=== PATIENT | male | born 1955 | race Caucasian/White ===

== ENCOUNTER 2018-09-03 11:39 | Inpatient (IN) | payer OTHER ==
[~2018-09-03] VITALS: Ht 182.9 cm; Wt 51.3 kg
--- NOTE | ~2018-09-03 | CON ---
[address] [address] CONSULTATION Name: CHARITO GONZALEZ Room: [address] IN M.R.#: [id number] Admission: 09/03/18 Attend Phys: Taylor Strauss MD Discharge: Date of : 53 Report #: [id number] THIS REPORT FOR: //name// CC: Taylor Mcintyre DATE OF SERVICE: 09/04/2018 NEUROLOGY CONSULTATION: HISTORY OF PRESENT ILLNESS: The gentleman is a 63-year-old male who has had difficulty with dizziness. This began around 2011. Eventually, it began to affect his gait and in approximately 2013 or so, he began walking with a cane. The patient's can now get him out of bed by using a gait belt, but the patient does not walk independently. At one point, he saw a physician and had an MRI of the head. Apparently, this was unremarkable. Today, an MRI of the head was attempted, but the patient cannot lie flat. He has significant forward flexion of the neck, so the MRI could not be done. When the patient went to see Dr. Mcintyre for a physical, he was referred to the Emergency Room. It has been quite some time since he has seen a physician. PAST MEDICAL HISTORY: Negative. PAST SURGICAL HISTORY: Negative. MEDICATIONS: The patient is now on Sinemet 10/100 one tablet 3 times a day. ALLERGIES: None. PHYSICAL EXAMINATION: VITAL SIGNS: Temperature 37.1, pulse rate 89, respiratory rate 17, blood pressure 125/76, bedside pulse oximetry 100% on room air. LABORATORY DATA: White blood cell count 3.7, hemoglobin 8.2, hematocrit 25.1, MCV 97, platelet count 172. Chemistry: Sodium 142, potassium 5.4, chloride 112, carbon dioxide 18, BUN 46, creatinine 3, GFR 21, calcium 8.9, phosphorus 4, magnesium 1.7. Liver functions unremarkable. B12 is 883. Folate 17.9. TSH 13.1. Free T4 is 1.05. NEUROLOGIC: Cranial nerves: The patient has no vertical gaze whatsoever. He has minimal horizontal gaze. Cranial nerves 2-12 are grossly intact. His told me that he is able to answer yes or no questions, but I could not understand any speech. Motor exam [place] [address] CONSULTATION Name: CHARITO GONZALEZ Room: [address]#: [id number] Admission: 09/03/18 Attend Phys: Taylor Strauss MD Discharge: Date of : 53 Report #: [id number] extremities. He has significant spasticity in the upper and lower extremities. He has significant axial spasticity as well. There is no evidence of cogwheel rigidity. His arms are flexed forward, but they can be straightened. The patient does not have contractures. Reflexes are symmetrical; however, the patient has a right extensor plantar response and a flexor and a left flexor extensor response. Coordination and gait were not tested. 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 This patient has absolutely no up or down gaze. He also has significant rigidity in the extremities and axial rigidity. Typically in progressive supranuclear palsy, the head is tilted backward. In this patient, his head is flexed forward, but he is very rigid axially. The patient is on Sinemet 10/100 one tablet 3 times a day. The fact is that there is no treatment for PSP. Medications are given for symptomatic improvement, but the fact is that Sinemet may be absolutely ineffective particularly since this is not Parkinson's disease. I am concerned about the patient's ability to swallow and apparently speech therapy is working with him and a video swallow is scheduled. I am also concerned about the remainder of the patient's lab work. He is anemic and has renal dysfunction with GFR of 21. His iron binding capacity is also low. Since the MRI could not be done, I am going to try a CT scan of the head just to look for something grossly abnormal. I thank you for your kind referral of the patient. By: 1430 0117Rebecca Rebolledo DO /nt
[2018-09-03 11:43] VITALS: BP 133/91
[2018-09-03] MEDS ORDERED: SINEMET 10-1001 EAC1 PO (11:47)
[2018-09-03 12:54] LABS: ABSOLUTE EOSINOPHILS 0.1 thou/uL (0.0-0.7); ABSOLUTE LYMPHOCYTES 0.8 thou/uL (0.8-5.3); ABSOLUTE NEUTROPHILS 2.5 thou/uL (1.6-8.1); BASOPHILS 0.8 %; EOSINOPHILS 3.9 %; HEMATOCRIT 29.9 % (42.0-52.0); HEMOGLOBIN 9.8 gm/dL (14.0-18.0); LYMPHOCYTES 21.7 %; MCH 32.3 pg (26.0-34.0); MCHC 32.8 g/dL (28.0-37.0); MCV 98.4 fL (80.0-100.0); MONOCYTES 0.9 %; NUCLEATED RBCS 0 /100WBC; PLATELET COUNT* 204 thou/uL (150-400); POLYS 72.7 %; RBC 3.04 mil/uL (4.50-6.00); RDW-CV 14.6 % (10.5-14.5); WBC 3.5 thou/uL (4.0-11.0)
[2018-09-03 12:58] LABS: CALCIUM 7.2 mg/dL (8.5-10.1); CREATININE 2.7 mg/dL (0.6-1.3); POTASSIUM 4.1 mmol/L (3.5-5.1)
[2018-09-03 13:07] LABS: ALBUMIN 2.5 g/dL (3.4-5.0); TOTAL BILIRUBIN 0.2 mg/dL (<0.1-1.0); TROPONIN-I LEVEL 0.13 ng/mL (<0.06)
--- NOTE | 2018-09-03 17:37 | EKG ---
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
[2018-09-03 18:31] LABS: POTASSIUM 5.1 mmol/L (3.5-5.1)
[2018-09-03 18:32] LABS: CALCIUM 8.7 mg/dL (8.5-10.1); CREATININE 3.1 mg/dL (0.6-1.3)
[2018-09-03 21:29] VITALS: BP 182/76
[2018-09-03 22:30] VITALS: BP 166/90
[2018-09-04 04:00] VITALS: BP 116/76
--- NOTE | 2018-09-04 05:02 | NUR ---
RECEIVED REPORT FROM SUPERVISOR ELEMENTARY EDUCATIONCORA OATES AT 1942. PT ARRIVED TO UNIT AT 2129 VIA CART. SPOUSE AT BEDSIDE. PT NONVERBAL. STAT NEPHROLOGY CONSULT PER DR. JIMENEZ AT 2155. SPOKE WITH DR. STAHL AND NEW ORDERS RECEIVED. IV FLUIDS INFUSING. NO APPARENT S/S OF PAIN THIS SHIFT. Q2H REPOSITIONING COMPLETED. FALL PRECAUTIONS IN PLACE. CALL LIGHT WITHIN REACH.
[2018-09-04 05:48] LABS: HEMATOCRIT 25.1 % (42.0-52.0); HEMOGLOBIN 8.2 gm/dL (14.0-18.0); MCH 31.7 pg (26.0-34.0); MCHC 32.7 g/dL (28.0-37.0); MPV 8.8 fl. (7.2-11.1); RBC 2.58 mil/uL (4.50-6.00); RDW-CV 14.2 % (10.5-14.5); WBC 3.7 thou/uL (4.0-11.0)
[2018-09-04 06:18] LABS: ALBUMIN 2.6 g/dL (3.4-5.0); CALCIUM 8.9 mg/dL (8.5-10.1); MAGNESIUM 1.7 mg/dL (1.8-2.4); POTASSIUM 5.4 mmol/L (3.5-5.1); TOTAL BILIRUBIN 0.2 mg/dL (<0.1-1.0); TOTAL PROTEIN 6.3 g/dL (6.4-8.2); TROPONIN-I LEVEL 0.14 ng/mL (<0.06)
[2018-09-04 07:30] VITALS: BP 109/72
[2018-09-04 12:00] VITALS: BP 126/80
--- NOTE | 2018-09-04 12:36 | 2DMMODE ---
[place] [address] 2 D/M-MODE ECHOCARDIOGRAM Name: CHARITO GONZALEZ Room: [address] IN [facility]#: [id number] Admission: 09/03/18 Attend Phys: Taylor Strauss, Discharge: Date of : 53 Date of Service: 09/04/18 1235 Report #: [id number] THIS REPORT FOR: //name// APPROVED REPORT Study performed: 09/04/2018 10:34:18 EXAM: Comprehensive 2D, Doppler, and color-flow Echocardiogram Patient Location: In-Patient Room #: [facility] Status: routine BSA: 1.88 HR: 94 bpm BP: 109/72 mmHg Rhythm: NSR Other Information Study Quality: Adequate Technically limited study due to poor window availability. Indications Elevated Troponin 2D Dimensions LVOT Diam: 20.00 (18-24mm) Aortic Valve AoV Peak Renzo.: 1.89 m/s AO Peak Gr.: 14.29 mmHg LVOT Max P.42 mmHg AO Mean Gr.: 8.09 mmHg LVOT Mean P.88 mmHg LVOT Max V: 0.92 m/s AO V2 VTI: 30.77 cm LVOT Mean V: 0.64 m/s JOSÉ LUIS (VTI): 1.82 cm2 LVOT V1 VTI: 17.79 cm Mitral Valve E/A Ratio: 0.75 MV Decel. Time: 171.97 ms MV E Max Renzo.: 0.51 m/s MV PHT: 49.87 ms MVA (PHT): 4.41 cm2 TDI E/Medial E': 4.25 Medial E' Renzo.: 0.12 m/[place] [address] 2 D/M-MODE ECHOCARDIOGRAM Name: CHARITO GONZALEZ Room: [address] IN ..#: [id number] Admission: 09/03/18 Attend Phys: Taylor Strauss, Discharge: Date of : 53 Date of Service: 09/04/18 1235 Report #: [id number] Left Ventricle The left ventricle is normal size. There appears to be hypokinesis involving the dital setum and anteroseptal apex. There is normal left ventricular wall thickness. Left ventricular systolic function is preserved. LVEF is 55-60%. Grade I - abnormal relaxation pattern. Right Ventricle The right ventricle is normal size. The right ventricular systolic function is normal. Atria The left atrium size is normal. The right atrium size is normal. Aortic Valve Mild aortic valve sclerosis. No aortic regurgitation is present. Mild aortic stenosis. Mitral Valve The mitral valve is normal in structure. Trace mitral regurgitation. No evidence of mitral valve stenosis. Tricuspid Valve The tricuspid valve is normal in structure. There is no tricuspid valve regurgitation noted. Pulmonic Valve Pulmonic valve is not well visualized. Great Vessels The aortic root is normal in size. IVC is not well visualized. Pericardium There is no pericardial effusion. <Conclusion> The left ventricle is normal size. There is normal left ventricular wall thickness. Left ventricular systolic function is preserved. LVEF is 55-60%. Grade I - abnormal relaxation pattern. There appears to be hypokinesis [place] [address] 2 D/M-MODE ECHOCARDIOGRAM Name: CHARITO GONZALEZ Room: [address] [facility] IN .R.#: [id number] Admission: 09/03/18 Attend Phys: Taylor Strauss, Discharge: Date of : 53 Date of Service: 09/04/18 1235 Report #: [id number] anteroseptal apex. Trace mitral regurgitation. <ELECTRONICALLY SIGNED> By: Jaleel Mijares MD, FACC 09/04/18 1235 34 123 Jaleel Mijares MD, FACC /INF
--- NOTE | 2018-09-04 12:48 | NUR ---
MET WI PT AND TO DISCUSS HOME SITUATION/DC PLANNING. PT DID NOT SPEAK BUT CAN NOD. 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 THEY HAVE CHILDREN THAT CAN ASSIST NEEDED. PER ROSITA/, PT HAS BEEN DETERIORATING FOR 6YRS, HAS NOT GONE TO DR REGULARLY. HE WAS A [employer]. STATES THAT HE WILL GET MEDICARE IN 3 MONTHS AND UNSURE HOW SHE'LL MANAGE THIS BILL. INFORMED HER THAT ALL UNINSURED PTS ARE CONTACTED BY [employer]. SHE IS HOPEFUL TO GO HOME SOON ABLE. THEY HAVE A W/C, WALKER, BENCH IN TUB, RAMP AND ADJUSTABLE BED LIKE A HOSPITAL BED. SHE STAES HE HAS BEEN ABLE TO FEED HIMSELF FINGER FOODS AND SWALLOW 'OK'. GAVE COMMUNITY RESOURCES AND INFO. PT HAS SEEN DR MCDONALD X1. ALSO DISCUSSED PALLIATIVE CARE. WILL CONSIDER. WILL FOLLOW
--- NOTE | 2018-09-04 15:53 | NUR ---
WOUND CARE NOTE: CONSULT FOR REDNESS ON BOTTOM/LOW ULYSSES SCORE PT IS MOSTLY BED/WC BOUND AT HOME. PTS ASSISTS WITH PTS CARE. SHE STATES PT WEARS A BRIEF AND SHE HAS TO SCOOT HIM OFF THE BED TO HIS WC. PT HAS SMALL HEALING PARTIAL THICKNESS ULCERATION TO LEFT BUTTOCK MEASURING 1.1X1.5X0.0. IT IS PINK, NON BLANCHING, NGUYEN WOUND DARK BROWN AND DRY.BOTH RIGHT AND LEFT BUTTOCK DISCOLORED AND DRY FLAKEY SKIN ARE NOTED. PT WAS REPOSITIONED WITH WEDGES AND BARRIOR CREAM APPLIED. WAS EDUCATED ON HOW TO REPOSITION WITH WEDGES OR PILLOWS, NOT USING A BRIEF AND USING A BARRIOR CREAM WHICH SHE STATES SHE DOES USE A&D OINTMENT AT HOME ON IT. SHE WAS RECEPTIVE OF THE EDUCATION. PT IS NON VERBAL. RECCOMEND: TURN Q2 HRS AND IF PT DOES NOT TOLERATE LAYING ON RIGHT SIDE THAT LONG TURNING MORE FREQUENT. USING WEDGES BARRIOR CREAM BID AND PRN WAFFLE CUSHION WHILE IN CHAIR GOOD NUTRITION
[2018-09-04 16:00] VITALS: BP 125/75
[2018-09-04 20:00] VITALS: BP 136/76
--- NOTE | 2018-09-04 20:14 | NUR ---
ASSUMED PT CARE 0730. PT NONVERBAL, WEAK. PT UP WITH ASSIST. PT O2 SAT AT 90'S RA. PT HAS CHRONIC TILT HEAD. TRACING SINUS TACH ON FASHION BUYER. PT LAST BM ON 09/03/18. PT HAD ECHO, MRI, CT, RENAL ULTRASOUND. PT ON MOORE CATHETER. .PT FOR VIDEO SWALLOW. SPEECH THERAPY SEEN HIM TODAY. PT ON MECHANICAL CHOP. NECTAR THICK DIET. PT HAS REDNESS ON BUTTOCKS NOTED. Q2 TURN. HOURLY ROUNDING. CALL LIGHT WITHIN REACH. WILL CONTINUE TO MONITOR.
[2018-09-05] VITALS: BP 137/78
[2018-09-05 04:00] VITALS: BP 122/70
[2018-09-05 05:42] LABS: MCH 32.3 pg (26.0-34.0); MCHC 33.9 g/dL (28.0-37.0); MCV 95.4 fL (80.0-100.0); MPV 9.1 fl. (7.2-11.1); RBC 2.09 mil/uL (4.50-6.00); RDW-CV 14.2 % (10.5-14.5); WBC 2.7 thou/uL (4.0-11.0)
[2018-09-05 05:51] LABS: HEMOGLOBIN 6.8 gm/dL (14.0-18.0)
[2018-09-05 06:06] LABS: ALBUMIN 2.2 g/dL (3.4-5.0); CALCIUM 8.4 mg/dL (8.5-10.1); CREATININE 3.1 mg/dL (0.6-1.3); POTASSIUM 5.2 mmol/L (3.5-5.1); TOTAL BILIRUBIN 0.2 mg/dL (<0.1-1.0); TOTAL PROTEIN 5.4 g/dL (6.4-8.2)
[2018-09-05 07:02] LABS: HEMATOCRIT 21.8 % (42.0-52.0); HEMOGLOBIN 7.3 gm/dL (14.0-18.0)
--- NOTE | 2018-09-05 08:01 | NUR ---
NOTIFIED PT'S OF PT'S NIGHT; AM LABS/HGB AND POTENTIAL NEED FOR BLOOD AND THAT THERE IS A BLOOD CONSENT IN THE FRONT OF THE CHART. STATED "OK WELL I WAS TRYING T GET HIM HOME TODAY BUT I CAN'T SEEM TO GET ANY OF THE DOCTORS TO MIKN TO ME."
[2018-09-05 09:01] VITALS: BP 139/84
[2018-09-05 11:50] VITALS: BP 141/82
--- NOTE | 2018-09-05 12:13 | NUR ---
WOUND NURSE- PATIENT WAS EVALUATED YESTERDAY BY GAGANDEEP, AND NEW CONSULT ENTERED LAST EVENING FOR "REDNESS COCCYX AND NECK". 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 HE HAS SOME VERY MILD, BLANCHABLE ERYTHEMA ALONG CLAVICLE, WHERE HIS CHIN RESTS ON IT. HIS REPORTS THAT IT WILL BECOME REDDENED AT HOME DUE TO HIS CHIN RESTING, AND ALSO "WHISKERS RUBBING". SHE KEEPS A FOLDED BABY DIAPER IN AREA. THERE IS NO OPEN AREA, DRAINAGE OR EVIDENCE OF FUNGAL RASH. AREA CLEANSED WITH SKIN CLEANSER AND PATTED DRY, WITH ERYTHEMA ALREADY STARTING TO RESOLVE. PLAIN FOAM PAD PLACED ON AREA TO PAD AREA. COCCYX AREA CLEANSED, WITH ONE TINY SMALL ABRADED AREA AND SOME CHRONIC APPEARING DISCOLORATION. PERICARE PROVIDED, MOISTURE BARRIER CREAM APPLIED. HEELS INTACT, NO ERYTHEMA. ATTEMPTED TO POSITION PATIENT SLIGHTLY ON HIS LEFT SIDE, BUT SOMEWHAT DIFFICULT DUE TO NECK CONTRACTURE. HOPES THAT PATIENT WILL BE DISCHARGED TO HOME TODAY. SHE REPORTS MANAGING WELL AT HOME, AND HAS NO QUESTIONS REGARDING SKIN CARE.
--- NOTE | 2018-09-05 14:38 | CON ---
[address] [address] CONSULTATION Name: CHARITO GONZALEZ Room: [address] IN M.R.#: [id number] Admission: 09/03/18 Attend Phys: Taylor Strauss MD Discharge: Date of : 53 Report #: [id number] THIS REPORT FOR: //name// CC: Taylor Strauss [facility] DATE OF SERVICE: 09/04/2018 REQUESTING PHYSICIAN: Dr. Strauss. REASON FOR CONSULTATION: Chronic kidney disease, possible acute kidney injury. HISTORY OF PRESENT ILLNESS: The patient is a 63-year-old gentleman who is admitted for worsening of his labs. The patient has some kind of neurological disorder and been progressively getting worse for the last several years. Apparently, he has not seen a neurologist because of lack of insurance. His is providing care for him. The patient is nonverbal and been eating and drinking just with help of his . He is very malnourished. They found that his creatinine was 3.0, carbon dioxide 18, potassium 5.4. We do not have any baseline of his creatinine. SOCIAL HISTORY: He is bedridden. No tobacco. No alcohol abuse. provides care for him. MEDICATIONS: Prior to admission, unknown. REVIEW OF SYSTEMS: Unable to obtain due to the patient being nonverbal. PHYSICAL EXAMINATION: GENERAL: Nonverbal but arousable. HEENT: Pupils are round. NECK: Turned to the right side and very rigid. He has got advanced muscle atrophy throughout. SKIN: Dry. LABORATORY DATA: Hemoglobin is 8.2, white count is 3.7. Serum sodium 142, potassium 5.4, chloride 112, carbon dioxide 18, BUN 46, creatinine 3.0. ASSESSMENT AND PLAN: 1. Progressive neurological disorder with very advanced general atrophy of his muscles, very malnourished. 2. Chronic kidney disease, likely stage 4-5. Calculation [place] [address] CONSULTATION Name: CARLOSCHARITO K Room: [address] IN [facility]#: [id number] Admission: 09/03/18 Attend Phys: Taylor Strauss MD Discharge: Date of : 53 Report #: [id number] due to his very low muscle mass, so it probably is stage 5. 3. Failure to thrive. 4. Anemia. PLAN: 1. Gentle hydration. 2. Follow his labs. 3. Obtain renal ultrasound. 4. Obtain neurological consultation. Overall very poor prognosis. The patient is not a chronic dialysis candidate. Thank you very much. <ELECTRONICALLY SIGNED> By: Davian Bell MD 09/05/18 1438 1131 [id number] Elizabeth Bell MD /nt
[2018-09-05 15:31] VITALS: BP 152/94
--- NOTE | 2018-09-05 16:17 | NUR ---
PT SOMEWHAT PROGRESSING TOWARDS GOALS THIS SHIFT. IVF CONTINUE TO INFUSE. LAB MONITORING THIS SHIFT. HGB STABLE AROUND 7.4, NO ORDER TO TRANSFUSE AT THIS TIME. UNABLE TO COLLECT OCCULT BLOOD THIS SHIFT D/T NO BM. CLARIFIED THAT PT IS A DNR. VOICES CONCERNS OF PHYSICIANS ORDERING 'UNNECCESSARY TESTS' AND THAT SHE IS PRIVATE PAY AND WANTS ALL FURTHER TESTING TO OK'D BY HER PRIOR TO OBTAINING TO HELP MANAGE COST OF HOSPITAL STAY. WILL PASS ON IN REPORT. NO OTHER CONCERNS AT THIS TIME. CLWR. WCTM.
[2018-09-05 20:00] VITALS: BP 108/47
[2018-09-06] VITALS: BP 138/84
[2018-09-06 03:47] LABS: MCHC 33.7 g/dL (28.0-37.0); MCV 94.9 fL (80.0-100.0); RBC 1.98 mil/uL (4.50-6.00); RDW-CV 14.4 % (10.5-14.5); WBC 2.2 thou/uL (4.0-11.0)
[2018-09-06 04:00] VITALS: BP 133/85
[2018-09-06 04:00] LABS: CALCIUM 8.2 mg/dL (8.5-10.1); CREATININE 2.9 mg/dL (0.6-1.3); POTASSIUM 4.5 mmol/L (3.5-5.1)
[2018-09-06 05:25] LABS: HEMATOCRIT 18.8 % (42.0-52.0); HEMOGLOBIN 6.4 gm/dL (14.0-18.0)
--- NOTE | 2018-09-06 07:02 | NUR ---
PT HAS BEEN RESTING THROUGH NIGHT. NO C/O OF PAIN. ABLE TO HOLD SMALL THICKENED TEA CUP FOR A COUPLE MIN LAST NIGHT WHIE DRINKING THROUGH A STRAW. PT HGB 6.4 THIS AM. NOTIFIED. 1 UNIT BLOOD ORDERED. PHONE CONSENT OBTAINED FROM . SOUNDED OPTIIMISTIC THAT TRANSFUSION WOULD HELP WITH 'S ENERGY LEVEL. DAY RN NOTIFIED.
[2018-09-06 08:26] VITALS: BP 148/92
[2018-09-06 09:06] VITALS: BP 134/79; BP 139/81; BP 146/85; BP 148/86
[2018-09-06 11:30] VITALS: BP 139/81
[2018-09-06] MEDS ORDERED: LEVOTHYROXINE25 MCG PO (12:23)
[2018-09-06] MEDS ORDERED: IRON325 PO (12:30)
[2018-09-06 12:36] VITALS: BP 139/81
--- NOTE | 2018-09-06 13:42 | NUR ---
DISCUSSED WITH DR JIMENEZ, [facility]. MET WITH PT AND . GIVEN OPTIONS, [facility] CHOSEN PT IS UNINSURED AND THEY MAY BE ABLE TO SEE PT. CALLED AND FAXED REFERRAL TO [facility]. /JANKI HERE MEETING WITH PT/. PLAN DC HOME LATER TODAY
--- NOTE | 2018-09-06 14:15 | NUR ---
ASSUMED CARE OF PT AROUND 0730 THIS AM. REFER TO ASSESSMENT. PT GIVEN ONE UNIT PRBC'S THIS SHIFT FOR LOW HGB. AWAITING RESULTS OF REPEAT H&H AT THIS TIME. PT HAS ORDERS TO DC HOME WITH HOSPICE. HOSPICE AT BEDSIDE AT THIS TIME TO EVAL. ANTICIPATES TAKING PT HOME WITH OWN VEHICLE AND PT'S W/C. NO OTHER CONCERNS AT THIS TIME. CLWR. WCTM.
[2018-09-06 15:23] LABS: HEMOGLOBIN 8.1 gm/dL (14.0-18.0)
--- NOTE | 2018-09-06 15:47 | NUR ---
DISCHARGE INSTRUCTIONS GIVEN TO PT AND SPOUSE. SPOUSE VERBALIZES UNDERSTANDING. PT'S HGB STABLE. REFER TO RESULTS. PT TO HAVE HOSPICE MEET AT HOUSE UPON ARRIVAL. NO OTHER CONCERNS AT THIS TIME.
== END 2018-09-06 15:45 | disposition hospice, home (50) | DRG 683 ==
LOC: M.ERS 11:39 → M.TBA-ER 15:06 → M.2W 15:06
PROVIDERS: Internal Medicine; Internal Medicine Nephrology; Nurse Practitioner Family; ADMIT Internal Medicine
PROC: 30233N1 Transfusion of Nonautologous Red Blood Cells into Peripheral Vein, Percutaneous Approach (ICD-10-PCS; principal; 2018-09-06)
DX: N17.9 Acute kidney failure, unspecified (principal); E87.0 Hyperosmolality and hypernatremia; E44.0 Moderate protein-calorie malnutrition; E87.2 Acidosis; Z68.1 Body mass index [BMI] 19.9 or less, adult; R29.90 Unspecified symptoms and signs involving the nervous system; R62.7 Adult failure to thrive; M43.6 Torticollis; I12.9 Hypertensive chronic kidney disease with stage 1 through stage 4 chronic kidney disease, or unspecified chronic kidney disease; E87.5 Hyperkalemia; D50.9 Iron deficiency anemia, unspecified; N18.4 Chronic kidney disease, stage 4 (severe); E86.0 Dehydration; E03.9 Hypothyroidism, unspecified; Z91.14 Patient's other noncompliance with medication regimen; Z79.899 Other long term (current) drug therapy